=== PATIENT | female | born 1990 | race Caucasian/White ===

== ENCOUNTER → 2017-03-04 | Day surgery (SDC) | payer OTHER ==
--- NOTE | 2017-03-03 14:53 | GHP ---
[f rep st] HISTORY AND PHYSICAL DATE OF ADMISSION: 03/04/2017 ADMITTING DIAGNOSIS: Missed at 7 4/7 weeks, failed medical treatment with retained products. HISTORY OF PRESENT ILLNESS: Patient is a 26-year-old, 3, para 1-0-2-1 who presents with unknown last menstrual period because she is currently her 10-month old. She had a positive test 01/25/2017. This was an unplanned and at first she had no complaints. She then came in for a viability ultrasound showing an intrauterine at 5 weeks and 3 days with a heart rate of 127 beats per minute. She was told to start Prometrium at that time because of a low progesterone. The patient then had a followup ultrasound 2 weeks later secondary to complaints of vaginal bleeding. Pelvic ultrasound showed again a viable intrauterine at 7 weeks 3 days with heart rate of 154 beats per minute, but the yolk sac seemed to be a little larger at this time, 4 x 5 mm, and at the right of the gestational sac was a cluster of cystic areas measuring 12 x 9 mm. She was instructed on pelvic rest, to follow up in 2 weeks for another viability ultrasound and to continue Prometrium. The patient returned to the 1-2 days with complaints of heavy bright red bleeding that was soaking through a panty liner. She denied any cramping or pain. She stated it did not feel like her previous miscarriage. Ultrasound was done that showed an embryo with no cardiac activity, consistent with a missed AB. Condolences were given. We discussed treatment options including observation versus medical treatment with Cytotec versus surgical treatment with a D and C. The patient will continue to observe over the next few days and ff she does not pass any tissue, she desires a D and C, which is tentatively scheduled for February 18. A few days prior to the D and C, the patient started to have heavy vaginal bleeding associated with painful cramping. Patient came in on February 24 and had a followup ultrasound. There was a concern for retained products with a thickened endometrium measuring 0.71 cm cystic structures in the cervix. The patient was given treatment options and she wanted to try Cytotec. The patient took Cytotec and only passed a few clots but was not sure that she had passed all products. Her bleeding has continued and is bright, red and she is having a little bit of cramping. So patient was told to come in for one more followup ultrasound. The patient presents today for a followup ultrasound, and again, the endometrial thickness is 0.6 cm and there are still these cystic areas in the endo canal, about 3 mm. Discussed with the patient that there is still concern for retained products, and at this point, she just wants to proceed with the surgery since she failed medical treatment. Discussed risks, benefits and alternatives of surgery. The patient understands all risks of the procedure and wants to proceed at this time. The patient is O positive. PAST OBSTETRICAL HISTORY: November 2014, she had a missed AB, did not require D and C. In March 2016, she had a full term vaginal delivery of a viable female infant, weight 7 pounds 15 ounces, uncomplicated. RESISTOR TESTER HISTORY: Age of menarche 13. Cycles are irregular. She does bleed for 5 to 7 days. She is currently amenorrheic secondary to breast feeding. Denies a history of abnormal Pap smears and any exposure to sexually-transmitted diseases. MEDICATIONS: vitamins. ALLERGIES: No known drug allergies. PAST MEDICAL HISTORY: Hypothyroidism. PAST SURGICAL HISTORY: Tonsillectomy, wisdom teeth extraction. FAMILY HISTORY: Unremarkable. SOCIAL HISTORY: Patient is . Lives with her and daughter. She is a nurse at the [employer]. Denies tobacco, alcohol or illicit drug use. LABORATORY DATA: The patient is O positive. Antibody negative. Beta HCG 16, 410. Progesterone is 9. REVIEW OF SYSTEMS: 10-point ROS is negative and positive pertinent are noted in HPI. PHYSICAL EXAM: VITAL SIGNS: Stable, afebrile. GENERAL: Well-nourished, well- developed female, alert and oriented x3. No apparent distress. CARDIOVASCULAR : Regular rate and rhythm without murmur. LUNGS: Clear to auscultation. Normal breath sounds. ABDOMEN: Soft, nondistended, nontender. EXTREMITIES: Normal to inspection without calf tenderness or edema. PELVIC: Deferred. ASSESSMENT: Patient is a 26-year-old, 3, para 1-0-2-1 with a missed AB at 7 weeks 4 days, failed medical treatment with retained products. PLAN: 1. Admit to Labor and Delivery for a suction D and C. 2. On-call physician, Dr. Tamiko Mcbride, to do bedside consents. 3. Antibiotics director construction services to OR. Will do oral doxycycline prior to OR then again in PACU. 4. SCDs for DVT prophylaxis. 5. Patient is Rh positive, no RhoGam is needed. /[id number]/MODL MTDD
[~2017-03-04] MED LIST: CEFAZOLIN 2 GM/DEXTROSE/100 ML BAG IV ONE; DEXAMETHASONE 4 MG/ML VIAL ONE; DOXYCYCLINE INJ 100 MG in D5W 250 ML IV ONE; KETOROLAC 30 MG/1 ML SDV ONE; LIDOCAINE 2% 5 ML SDV ONE; MIDAZOLAM 2 MG/2 ML VIAL IVP ONE; MIDAZOLAM 2 MG/2 ML VIAL ONE; ONDANSETRON 4 MG/2 ML VIAL ONE; PROPOFOL/EMULSION 500 MG/50 ML BOTTLE IV ONE; ceFAZolin 2 GM/DEXTROSE 100 ML IV ONE; fentaNYL 100 MCG/2 ML INJ ONE
[2017-03-04 06:38] LABS: % IMMATURE GRANULYOCYTES 0.2 % (0.0-1.1); ABSOLUTE IMMATURE GRANULOCYTES 0.01 10^3/uL (0.00-0.10); ADD DIFF? NO; ADD MORPH? NO; ADD SCAN? NO; ATYPICAL LYMPHOCYTE FLAG 0 (0-99); FRAGMENT RBC FLAG 20 (0-99); HEMATOCRIT 44.1 % (38.0-47.0); LEFT SHIFT FLG 0 (0-99); LIPEMIA HEMOLYSIS FLAG 90 (0-99); MEAN CELL HEMOGLOBIN 29.6 pg (27.9-34.1); MEAN CELL VOLUME 87.2 fL (81.5-99.8); MEAN PLATELET VOLUME 11.4 fL (8.7-11.7); PLATELET CLUMPS FLAG 10 (0-99); PLATELET COUNT 225 10^3/uL (150-400); RED BLOOD CELL COUNT 5.06 10^6/uL (4.18-5.33); RED CELL DISTRIBUTION WIDTH 13.6 % (11.5-15.2)
--- NOTE | 2017-03-04 07:44 | PDANEPAE ---
ANE History of Present Illness Missed Ab. ANE Past Medical History - Cardiovascular History Hx Hypertension: No Hx Arrhythmias: No Hx Chest Pain: No Hx Coronary Artery / Peripheral Vascular Disease: No Hx CHF / Valvular Disease: No Hx Palpitations: No - Pulmonary History Hx COPD: No Hx Asthma/Reactive Airway Disease: No Hx Recent Upper Respiratory Infection: No Hx Oxygen in Use at Home: No - Endocrine History Hx Diabetes: No Hypothyroid: Yes - Chronic Pain History Chronic Pain: No ANE Review of Systems Review of Systems: Baby 10 months ago. Nursing currently. ANE Patient History - Allergies Allergies/Adverse Reactions: No Known Allergies Allergy (Verified 03/04/17 07:44) - NPO status NPO Since - Liquids (Date): 03/04/17 NPO Since - Liquids (Time): 00:00 NPO Since - Solids (Date): 03/04/17 NPO Since - Solids (Time): 00:00 - Anes Hx Anes Hx: no prior problems - Smoking Hx Smoking Status: Never smoked ANE Labs/Vital Signs - Labs Result Diagrams: 03/04/17 06:15 - Vital Signs Height: 167.64 cm Weight: 61.689 kg ANE Physical Exam - Airway Neck exam: FROM Mallampati Score: Class 1 Mouth exam: normal dental/mouth exam - Pulmonary Pulmonary: no respiratory distress - Cardiovascular Cardiovascular: regular rate and rhythym - ASA Status ASA Status: I ANE Anesthesia Plan Anesthesia Plan: GA with mask
--- NOTE | 2017-03-04 09:36 | GOP ---
[f rep st] OPERATIVE REPORT DATE OF OPERATION: 03/04/2017 SURGEON: Tamkio Mcbride MD ANESTHESIA: General anesthesia. ANESTHESIOLOGIST: Dallas Stoner MD. PREOPERATIVE DIAGNOSIS: Incomplete at 7 weeks. POSTOPERATIVE DIAGNOSIS: Incomplete at 7 weeks. PROCEDURE PERFORMED: Suction dilation and curettage. FINDINGS: SPECIMENS: Products of conception. ESTIMATED BLOOD LOSS: For the procedure, less than 20 cc. INDICATIONS: The patient is a 26-year-old 3, para 1-0-2-1, with an unknown last menstrual b ecause she is currently her [id number]. She had a positive test on 2016, and came for a viability ultrasound, showing an intrauterine at 5 weeks 3 days with a heart rate of 127. Ultrasound 2 weeks later was performed secondary to vaginal bleeding. That ul trasound showed an intrauterine at 7 weeks with a heart rate of 154 with a yolk sac that w as larger, and she had a cystic area near her yolk sac in the endometrial cavity. She followed up i n 2 weeks for another ultrasound. However, she presented complaining of heavy, bright red bleeding, soaking through panty liner, and ultrasound showed an embryo with no cardiac activity, consistent w ith missed . The patient was given treatment options, and initially, she wanted expectant m anagement. She passed some tissue, but followup ultrasound revealed retained products of conception . At that point, she tried Cytotec, and she passed some tissue, but still had a thickened endometri um and cystic structures near the cervix. Yesterday, she had another followup ultrasound that showe d a thickened endometrium, and there were cystic areas in the endometrial canal. We discussed that there was still concern for retained products of conception, and she was instructed to follow up wit h a suction D and C. The patient was consented for the procedure. She understood the risks and benefits, the risks inclu ding bleeding, infection, damage to the uterus, including the risk of damage to internal organs if p erforation were to occur, risk of incomplete removal of all of the tissue with need for a spontaneou s expulsion at a later time, or repeat procedure, and compromise of future fertility. She understoo d these risks and benefits and agreed to proceed. DESCRIPTION OF PROCEDURE: Patient was taken to the operating room, where she was placed under gener al anesthesia without difficulty. She was prepped and draped in the dorsal lithotomy position. Her cervix was already dilated to 7 mm, and the uterus sounded to 7 cm. The #7 curved suction curette was then gently applied from the cervix and advanced to the fundus. Suction was applied, and there were products of conception that were removed with passage of the suction device. Sharp curettage w as then performed in a clockwise fashion until a gritty texture was palpated throughout the entire e ndometrial cavity. One final passage of suction device revealed no further tissue, no further bleed ing. The tenaculum was removed, and the speculum was removed, and transvaginal ultrasound was perfo rmed at the bedside. Uterus had a thin endometrium with no further products of conception seen. e patient tolerated the procedure well. Sponge, lap, needle, and instrument counts were correct x2. Patient went to the recovery room in good condition. URINE OUTPUT: Not measured. /[id number]/MODL
== END | disposition home or self-care (01) ==
LOC: FOBOP 05:44
PROVIDERS: ATTEND Obstetrics & Gynecology
PROC: 10D17ZZ Extraction of Products of Conception, Retained, Via Natural or Artificial Opening (ICD-10-PCS; principal; 2017-03-04)
DX: O02.1 Missed abortion (principal)
CPT/HCPCS: J0690; J1100; J1885; J2250; J2405; J2704; J3010

== ENCOUNTER 2018-01-22 07:31 | Observation (INO) | payer OTHER ==
--- NOTE | 2018-01-22 08:18 | PDGENHP ---
History and Physical History and Physical: CARE: [facility] HPI: Patient is a 27 yo with IUP@ 39-0wks that presents to L&D with complaints of contractions since 0500 this morning. EDC: [ ] which is based on LMP: [ ] which is known and consistent with Ultrasound at [ ] weeks. Her is complicated by: [ ] Review of Systems: Constitutional: Denies any fever, chills, or fatigue HEENT: denies any visual changes, difficulty swallowing, hearing loss Cardiovascular: Denies any chest pain, palpitations, leg swelling Respiratory: denies any cough, wheezing, or shortness of breathe GI: Denies any nausea, vomiting, diarrhea, constipation : denies any dysuria, urgency, frequency, vaginal bleeding Musculoskeletal: denies any muscle or bone pain Skin: denies any rashes Neuro: denies any headache, seizures, lightheadedness, dizziness, or loss of consciousness Psychiatric: denies any depression, anxiety, or SI/HI thoughts HISTORY: Previous OB history: [ ] Past medical history: [ ] Past surgical history: [ ] Medications: PNV [ ] Allergies (list reaction): NKDA LABS: Rh: [ ] ABS: Neg Rubella: Immune HbsAg: NR HIV: NR VDRL: NR 1hr: [ ] GC: Neg Chlamydia: Neg Pap: Normal GBS: [ ] BMI: (prepreg) [ ] PHYSICAL EXAM: Constitutional: WN, A&Ox3 HEENT: normocephalic atraumatic, supple Heart: RRR, no murmur Chest: CTA-B Abdomen: Soft, nontender, gravid SVE: [ ] Extremities: [ ] edema, negative homans sign Neuro: grossly normal Psych: normal affect assessment: Reassuring FHTs, baseline [ ] +accels, no decels, moderate variability Contractions: toco q [ ] Assessment: 1) [ ] yo G [ ] P [ ] with IUP@ [ ] 2) [ ] labor 3) GBS [ ] 4) Cat [ ] FHR tracing Plan: 1) Admit to L&D 2) [ ]
== END 2018-01-22 09:00 | disposition home or self-care (01) ==
LOC: FLD 07:31 → INTOOBSV 07:31
PROVIDERS: ADMIT Advanced Practice Midwife; ATTEND Advanced Practice Midwife
DX: O99.89 Other specified diseases and conditions complicating pregnancy, childbirth and the puerperium (principal); Z3A.39 39 weeks gestation of pregnancy
CPT/HCPCS: 59025; G0378

== ENCOUNTER 2018-01-23 12:03 | Inpatient (IN) | payer OTHER ==
[2018-01-23] MEDS ORDERED: LR 1,000 ML IV PRN (12:48)
[2018-01-23] MEDS ORDERED: TERBUTALINE SULFATE 1 MG/ML VIAL IV PRN (12:48)
[2018-01-23] MEDS ORDERED: EPSOM SALT 454 GM TP PRN (12:48)
[2018-01-23] MEDS ORDERED: IBUPROFEN 600 MG TAB PO PRN (12:48)
[2018-01-23] MEDS ORDERED: OLIVE OIL 118 ML BTL MISC PRN (12:48)
[2018-01-23] MEDS ORDERED: MISOPROSTOL 200 MCG TAB PO PRN (12:48)
[2018-01-23] MEDS ORDERED: AMMONIA AROMATIC 1 EACH AMP IH PRN (12:48)
[2018-01-23] MEDS ORDERED: LIDOCAINE 1% 300 MG/30 ML SDV SC PRN (12:48)
[2018-01-23] MEDS ORDERED: OXYTOCIN/RINGERS LACTATE 1,000 ML IV PRN (12:48)
[2018-01-23] MEDS ORDERED: LR 500 ML IV PRN (12:48)
--- NOTE | 2018-01-23 12:59 | PDGENHP ---
History and Physical - Chief Complaint Elective IOL at 39w1d, h/o rapid labor - History of Present Illness Kelley is a very pleasant 27 yo at 39w1d by 7wk US (5d diff from LMP dating, but hx irregular menses to changed based on that US to 01/29/18) who presents for elective IOL. With her daughter Byron she had very rapid labor with 30 minutes of pushing, barely got an epidural, for 7#15oz baby. Lives [place] much as 90 minutes away in [facility]. Has discussed elective IOL w/ that history at 39 wks throughout . Otherwise had h/o PPH with first delivery, did not need blood transfusion, maybe was an issue with sticky placenta per her report. Needed curettage and cytotec PP. H/o 2 other SABs, first in 2014 did not required D&C, 2nd in 2016 she did pass naturally but ultimately had RPOC and had D&C after trying Cytotec. Subjectively today feeling good - has been having runs of uncomfortable ctx's the past few days. Was 3cm in clinic today. GBS negative. History Information - Allergies/Home Medication List Allergies/Adverse Reactions: No Known Allergies Allergy (Verified 03/04/17 07:44) I have personally reviewed and updated: family history, medical history, social history, surgical history Past Medical History: Hypothyroid, h/o PPH, anemia during - Family History Additional family history: Fam h/o congenital cardiomyopathy (FOC's B, PGF, PGGF ) all with left ventricular non-compaction (?) cardiomyopathy. Pt has Fam h/o CF carrier and 2 cousins with CF (pt tested negative as carrier). Pt also has Fam h/o sister and brother with Type IV Mucopolysaccharide metabolic disorder. Pt tested negative as carrier for this as well apparently. - Social History Smoking Status: Never smoked Review of Systems Review of Systems: ROS: 10pt was reviewed & negative except for what was stated in HPI & below Physical Exam Physical Exam: Constitutional: no apparent distress Lab Data & Imaging Review Imaging Review: Bedside US confirms vertex position with spine along maternal right. Assessment & Plan Assessment: 27 yo at 39w1d presents for elective IOL due to h/o rapid labor. IOL - Pitocin and then AROM once in a regular pattern. Will want epidural before AROM. Hypothyroid - Continue Synthroid 100mcg. H/o PPH - Potentially due to adherent placenta, will watch for this at delivery. Routine IV access, type & Screen. Fam h/o congenital cardiac anomaly in FOC and metabolic disorders in Pt's family - screening/testing shows not to be at risk, but will let peds know. MICHELE
[2018-01-23] MEDS ORDERED: OXYTOCIN/RINGERS LACTATE 500 ML IV SCH (13:00)
[2018-01-23] MEDS ORDERED: LIDOCAINE 1% 300 MG/30 ML SDV ONE (13:43)
[2018-01-23] MEDS ORDERED: TERBUTALINE SULFATE 1 MG/ML VIAL ONE (13:43)
[2018-01-23] MEDS ORDERED: OLIVE OIL 118 ML BTL ONE (13:43)
[2018-01-23] MEDS ORDERED: AMMONIA AROMATIC 1 EACH AMP IH ONE (13:43)
[2018-01-23] MEDS ORDERED: OXYTOCIN 10 UNIT/ML VIAL ONE (13:43)
[2018-01-23] MEDS ORDERED: MISOPROSTOL 200 MCG TAB ONE (13:43)
[2018-01-23 13:53] LABS: PLATELET COUNT 142 10^3/uL (150-400)
--- NOTE | 2018-01-23 16:16 | PREANESOB ---
Obstetric Pre-Anesthesia Info - General Info : 4 Para: 1 MAYA: 01/29/18 Gestational Age: 39 week(s) and 1 day(s) - Info Status: Full Term Anesthesia Allergies/Adverse Reactions: Allergy/AdvReac Type Severity Reaction Status Date / Time No Known Allergies Allergy Verified 03/04/17 07:44 Home Medications: Medication Instructions Recorded Ibuprofen [Motrin (*)] 600 mg PO Q6 PRN #0 tab 04/14/16 Iron Polysacch/Iron Heme Polyp 28 mg PO BID #0 tab 04/14/16 [Bifera] Levothyroxine [Synthroid 100 mcg 100 mcg PO DAILY06 #0 tab 04/14/16 (*)] Visit Medications: Generic Name Dose Route Start Last Admin Trade Name Freq PRN Reason Stop Dose Admin Ammonia (Aromatic Spirit) 1 each 01/23/18 12:48 Ammonia Aromatic IH 02/02/18 12:47 ONCE PRN Fainting Lactated Ringer's 1,000 mls @ 0 mls/hr 01/23/18 12:48 Lr IV 01/24/18 12:47 PRN PRN SEE PROTOCOL CONDITIONS Protocol Per Protocol Lactated Ringer's 500 mls @ 500 mls/hr 01/23/18 12:48 Lr IV 01/24/18 12:48 PRN PRN Maternal Hypotension Oxytocin/Lactated Ringer's 1,000 mls @ 0 mls/hr 01/23/18 12:48 Pitocin 20 Units/Lr (Premix) IV PRN PRN Post bleeding As Directed Oxytocin/Lactated Ringer's 500 mls @ 0 mls/hr 01/23/18 13:00 01/23/18 14:02 Pitocin 30 Units/Lr (Premix) IV 07/22/18 12:59 500 mls CONT RAMAN Administration Protocol Per Protocol Fentanyl 200 mcg/ Bupivacaine 100 mls @ 0 mls/hr 01/23/18 16:30 HCl 20 ml/ Sodium Chloride EP 02/02/18 16:29 CONT RAMAN Protocol As Directed Ibuprofen 600 mg 01/23/18 12:48 Motrin PO ONCE PRN post , pain Levothyroxine Sodium 100 mcg 01/24/18 06:00 Synthroid PO 07/23/18 05:59 DAILY AT 6AM RAMAN Lidocaine HCl 300 mg 01/23/18 12:48 Lidocaine Hcl 1% SC 07/22/18 12:47 ONCE PRN episiotomy Magnesium Sulfate 454 gm 01/23/18 12:48 Epsom Salt TP 07/22/18 12:47 Q1H PRN perineal discomfort Misoprostol 800 - 1,000 mcg 01/23/18 12:48 Cytotec PO 07/22/18 12:47 ONCE PRN Vaginal Atony/Bleeding Hayfield Oil 118 ml 01/23/18 12:48 Sweet Oil MISC 07/22/18 12:47 ONCE PRN perineal massage Terbutaline Sulfate 0.25 mg 01/23/18 12:48 Brethine IV 07/22/18 12:47 ONCE PRN Tachysystole Discontinued Medications Generic Name Dose Route Start Last Admin Trade Name Freq PRN Reason Stop Dose Admin Ammonia (Aromatic Spirit) Confirm 01/23/18 13:43 Ammonia Aromatic Administered 01/23/18 13:44 Dose 1 each IH .STK-MED ONE Lidocaine HCl Confirm 01/23/18 13:43 Lidocaine Hcl 1% Administered 01/23/18 13:44 Dose 300 mg .ROUTE .STK-MED ONE Misoprostol Confirm 01/23/18 13:43 Cytotec Administered 01/23/18 13:44 Dose 1,000 mcg .ROUTE .STK-MED ONE Hayfield Oil Confirm 01/23/18 13:43 Sweet Oil Administered 01/23/18 13:44 Dose 118 ml .ROUTE .STK-MED ONE Oxytocin Confirm 01/23/18 13:43 Pitocin Administered 01/23/18 13:44 Dose 40 unit .ROUTE .STK-MED ONE Terbutaline Sulfate Confirm 01/23/18 13:43 Brethine Administered 01/23/18 13:44 Dose 1 mg .ROUTE .STK-MED ONE - Anesthesia History Response to Local Anesthetics: Normal Anesthesia & Operative History: No Prior Problems Family Anesthesia History: Not Applicable - Social History Substance Use/Abuse: Denies - Vital Signs Latest Vital Signs (Nursing): per nursing Height/Weight (Nursing): Height 167.64 cm Weight 78.471 kg - Focused Exam Neck exam: FROM Mallampati Score: Class 2 Mouth exam: normal dental/mouth exam Pulmonary: no respiratory distress Cardiovascular: regular rate and rhythym Labs: 01/23/18 13:30 Patient ABO/Rh O POSITIVE 01/23/18 13:30 - Plan Anesthetic Plan: CLAUDIA Consent Signed and on Chart: Yes Patient/Guardian Understands and Agrees to Plan: Yes
[2018-01-23] MEDS ORDERED: fentaNYL 200 MCG, BUPIVACAINE 0.5% 20 ML in NS 100 ML EP SCH (16:30)
[2018-01-23] MEDS ORDERED: LR 500 ML IV SCH (17:30)
[2018-01-23] MEDS ORDERED: ACETAMINOPHEN 500 MG TAB PO PRN (19:05)
--- NOTE | 2018-01-23 23:02 | OBDEL ---
Info Type: Vaginal Presentation at Delivery: Vertex L&D Analgesia/Anesthesia Type: Epidural GBS+: No Intrapartum Medications: Generic Name Dose Route Start Last Admin Trade Name Freq PRN Reason Stop Dose Admin Acetaminophen 1,000 mg 01/23/18 19:05 01/23/18 19:14 Tylenol PO 07/22/18 19:04 1,000 mg Q6HRS PRN Administration Pain, Mild/Fever, Can Take PO Oxytocin/Lactated Ringer's 500 mls @ 0 mls/hr 01/23/18 13:00 01/23/18 14:02 Pitocin 30 Units/Lr (Premix) IV 07/22/18 12:59 500 mls CONT RAMAN Administration Protocol Per Protocol Discontinued Medications Generic Name Dose Route Start Last Admin Trade Name Freq PRN Reason Stop Dose Admin Ibuprofen 600 mg 01/23/18 12:48 01/23/18 22:45 Motrin PO 600 mg ONCE PRN Administration post , pain Indications for Delivery: Elective (39w1d, h/o rapid labor, lives 90 minutes from hospital) Vaginal Delivery - Delivery Provider Delivery Physician/CNM: Sd Crabtree - Labor and Delivery Onset of Contractions Date: 01/23/18 Onset of Contractions Time: 12:00 Onset of Contractions Type: Augmented (Pitocin) Rupture of Membranes Date: 01/23/18 Rupture of Membranes Time: 16:00 Rupture of Membranes Type: Artificial Amniotic Fluid Color: Clear Dilation Complete Date: 01/23/18 Dilation Complete Time: 18:05 Placenta Delivery Date: 01/23/18 Placenta Delivery Time: 22:25 Total Hours of Labor: 10 Non-surgical Procedures: Amniotomy Laceration: Other (Specify) (None) Vaginal Sponge Count Correct: Yes Vaginal Needle Count Correct: Yes Vaginal Sweep Performed: Yes EBL: 150cc Delivery Events: None Delivery Comment: Baby had compound presentation where hand could be felt beside (but not advancing past) the vertex. That resolved itself with subsequent checks. Also did have recurrent variable decels for a time towards completion of stage I, but those also largely resolved by Stage II. Cord Gases: Not collected - Medications Labor Augmentation/Induction Methods Used: Pitocin Labor Augmentation/Induction Indication: Elective Data MAYA: 01/29/18 Gestational Age: 39 week(s) and 1 day(s) Brooks Delivery Date: 01/23/18 Delivery Time: 22:13 Sex of Infant: Male (Royal Rehman) Score (1 Min): 8 Score (5 Min): 8 Shoulder Dystocia Time Head Delivered: 22:13 Time Body Delivered: 22:13 Dystocia Comment: No dystocia ICD10 Worksheet Patient Problems: Problems Problem Status Onset Encounter for elective induction of labor Acute (spontaneous vaginal delivery) Acute Incomplete Acute PPH ( hemorrhage) Acute Retained placenta parts or membranes Acute (spontaneous vaginal delivery) Acute - ICD10 Problem Qualifiers (1) Encounter for elective induction of labor (2) (spontaneous vaginal delivery)
[2018-01-23] MEDS ORDERED: ACETAMINOPHEN 325 MG TAB PO PRN (23:07)
[2018-01-23] MEDS ORDERED: LACTULOSE 20 GM/30 ML UDCUP PO PRN (23:07)
[2018-01-23] MEDS ORDERED: HYDROCORTISONE 0.5% CREAM TP PRN (23:07)
[2018-01-23] MEDS ORDERED: MAGNESIUM HYDROXIDE 30 ML UDCUP PO PRN (23:07)
[2018-01-23] MEDS ORDERED: BISACODYL 10 MG SUPP PR PRN (23:07)
[2018-01-23] MEDS ORDERED: POLYETHYLENE GLYCOL 3350 17 GM PKT PO PRN (23:07)
[2018-01-23] MEDS ORDERED: HYDROCODONE/APAP 5/325 TAB PO PRN (23:07)
--- NOTE | 2018-01-23 23:40 | PDMN ---
Medical Necessity Medical necessity: C/M review: Patient meets INPT crtieria per [facility] [id number] Vaginal delivery: viable male .
[2018-01-24] MEDS: IBUPROFEN 600 MG TAB PO PRN ×4 (05:48→23:25)
[2018-01-24] MEDS: LEVOTHYROXINE 100 MCG TAB PO SCH (05:48)
--- NOTE | 2018-01-24 10:31 | OBPP ---
Progress Note Assessment/Plan: Assessment: [id number] s/p Plan: routine PP Care ambulate/hydrate cont plan d/c home tomorrow AM 01/24/18 10:30 01/24/18 10:32 Subjective/ Course: 01/24/18 10:31 pt doing well, happy and states she was able to get some sleep last night. She denies any pain or heavy bleeding. She is without difficulty. She is ambulating and voiding without difficulty. @ BS and supportive. Desires d/c home tomorrow morning. Objective: 01/24/18 05:59 Patient ABO/Rh O POSITIVE 01/23/18 13:30 Temp Pulse Resp BP Pulse Ox 36.2 C 59 L 17 99/69 L 97 01/24/18 08:00 01/24/18 08:00 01/24/18 08:00 01/24/18 08:00 01/24/18 08:00 Uterine Position/Fundal Height: Umbilicus -1, Midline Uterine Tone: Firm
[2018-01-24] MEDS: SENNOSIDES/DOCUSATE SODIUM TAB PO SCH ×2 (11:08→21:32)
[2018-01-24] MEDS: DOCUSATE SODIUM 100 MG CAP PO SCH (21:32)
[2018-01-25] MEDS: LEVOTHYROXINE 100 MCG TAB PO SCH (06:05)
[2018-01-25] MEDS: IBUPROFEN 600 MG TAB PO PRN ×2 (06:05→12:00)
[2018-01-25 09:25] VITALS: BP 93/60
[2018-01-25] MEDS: DOCUSATE SODIUM 100 MG CAP PO SCH (10:07)
[2018-01-25] MEDS: SENNOSIDES/DOCUSATE SODIUM TAB PO SCH (10:09)
--- NOTE | 2018-01-25 12:42 | OBPP ---
Progress Note Assessment/Plan: Assessment: PPD2 s/p - Elective IOL at 39 wks. Doing great, meeting all milestones. 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 Fu with us 4 wks mood check, 6 wks PP visit. Cont Synthroid 100mcg/day. Discussed dietary iron and option of Supps. MICHELE Subjective/ Course: 01/24/18 10:31 pt doing well, happy and states she was able to get some sleep last night. She denies any pain or heavy bleeding. She is without difficulty. She is ambulating and voiding without difficulty. @ BS and supportive. Desires d/c home tomorrow morning. 01/25/18 14:03 Kelley was doing great this AM - Pain minimal, baby doing great. Waiting on circ this AM then would like to go home. Planning to continue her home dose of Synthroid - that's been 100mcg/day for long before . Objective: 01/24/18 05:59 Patient ABO/Rh O POSITIVE 01/23/18 13:30 Temp Pulse Resp BP Pulse Ox 36.1 C 58 L 16 93/60 L 96 01/25/18 09:23 01/25/18 09:23 01/24/18 20:00 01/25/18 09:23 01/25/18 09:23 Uterine Position/Fundal Height: At Umbilicus Uterine Tone: Firm
--- NOTE | 2018-01-25 12:43 | OBGCSDC ---
General Delivery Information - General Info : 4 Para: 2 Abortions: 2 Type: Vaginal L&D Analgesia/Anesthesia Type: Epidural Admission Date: 01/23/18 Labs: Patient ABO/Rh O POSITIVE 01/23/18 13:30 Hct 39.7 % (38.0-47.0) 01/24/18 05:59 - Hospital Course : 01/24/18 10:31 pt doing well, happy and states she was able to get some sleep last night. She denies any pain or heavy bleeding. She is without difficulty. She is ambulating and voiding without difficulty. @ BS and supportive. Desires d/c home tomorrow morning. Vaginal - Delivery Provider Delivery Physician/CNM: Sd Crabtree - Diagnosis Labor: Augmented (Pitocin) Rupture of Membranes Type: Artificial Amniotic Fluid Color: Clear Laceration: Other (Specify) (None) Delivery Events: None - Procedures Non-surgical Procedures: Amniotomy - Delivery Non-surgical Procedures: Amniotomy EBL: 150cc Data MAYA: 01/29/18 Gestational Age: 39 week(s) and 3 day(s) Brooks Delivery Date: 01/24/18 Delivery Time: 22:13 Sex of Infant: Male Weight (gm): 3410 g Score (1 Min): 8 Score (5 Min): 8 Discharge Information - Discharge Information Condition: Good Instruction/Follow Up: See Instruction Sheet, Four Weeks, Six Weeks
== END 2018-01-25 14:00 | disposition home or self-care (01) | DRG 775 ==
LOC: FLD 12:03 → FOB 01-24 01:54
PROVIDERS: ADMIT Obstetrics & Gynecology; ATTEND Obstetrics & Gynecology
PROC: 10907ZC Drainage of Amniotic Fluid, Therapeutic from Products of Conception, Via Natural or Artificial Opening (ICD-10-PCS; principal; 2018-01-23)
PROC: 10E0XZZ Delivery of Products of Conception, External Approach (ICD-10-PCS; principal; 2018-01-23)
DX: O09.893 Supervision of other high risk pregnancies, third trimester (principal); O76 Abnormality in fetal heart rate and rhythm complicating labor and delivery; O99.283 Endocrine, nutritional and metabolic diseases complicating pregnancy, third trimester; E03.9 Hypothyroidism, unspecified; Z3A.39 39 weeks gestation of pregnancy; Z37.0 Single live birth
CPT/HCPCS: J2590; J3010; J3105